=== PATIENT | female | born 1950 | race Caucasian/White ===

== ENCOUNTER 2017-05-12 15:51 | Emergency (ER) | payer MEDICARE ==
[~2017-05-12] VITALS: Ht 157.5 cm; Wt 73.6 kg
[~2017-05-12 15:51] MED LIST: /CELE20CA PO; ASPI81TA21 PO; CALCTAB28 PO; COQ1100C PO; FISH1400 PO; LOSA100T36 PO; LYRI75CA PO; PERCOCET OR; SIMV40TA2 PO; TYLE325T5 PO; VITA200016 PO; XARE10TA PO; ZETI10TA21 PO; [UNRECOGNIZED DRUG - OTHER] PO
[2017-05-12] MEDS ORDERED: MELO15TA4 PO (16:11)
--- NOTE | 2017-05-12 19:10 | REPUSA ---
Clinical statement: Pain, swelling. Findings: Venous Doppler imaging of the left upper extremity was performed. The internal jugular vein compresses normally and demonstrates normal color Doppler flow. Normal venous wave forms are seen wi thin the subclavian vein. The axillary, brachial, basilic, and cephalic veins compress normally and d emonstrate normal color Doppler flow. Normal augmentation is seen. Impression: No evidence of deep vein thrombosis in the left upper extremity.
--- NOTE | 2017-05-12 19:15 | REP ---
Chest two views HISTORY: Shortness of breath Comparison: 10/02/2013 The lungs are clear. The heart is normal in size. The pulmonary vasculature is normal in appearance. The bony structure is intact. IMPRESSION: No acute disease. Signed by Rafael Martins MD 05/12/2017 07:06 P
[2017-05-12 19:24] LABS: BASO % 0.4 % (0.0-1.0); EOS # 0.1 K/mm3 (0.0-0.50); EOS % 0.9 % (0.0-3.0); LARGE UNSTAINED CELL # 0.2 K/mm3 (0.0-0.4); LARGE UNSTAINED CELL % 2.2 % (0.0-4.0); LYMPH # 1.9 K/mm3 (1.5-4.5); LYMPH % 20.8 % (24.0-44.0); MEAN CORPUSCULAR HEMOGLOBIN 29.8 pg (27.0-33.0); MEAN CORPUSCULAR HGB CONC 34.1 g/dl (32.0-36.5); MEAN CORPUSCULAR VOLUME 87.5 fl (80.0-96.0); MONO # 0.4 K/mm3 (0.0-0.8); MONO % 4.6 % (0.0-5.0); NEUTROPHILS % 71.2 % (36.0-66.0); PLATELET COUNT, AUTOMATED 316 k/mm3 (150-450); RED CELL DISTRIBUTION WIDTH 12.2 % (11.5-14.5); WHITE BLOOD COUNT 8.4 K/mm3 (4.0-10.0)
[2017-05-12 19:52] LABS: ANION GAP 4 MEQ/L (8-16); BLOOD UREA NITROGEN 17 MG/DL (7-18); CALCIUM LEVEL 9.3 MG/DL (8.8-10.2); CARBON DIOXIDE LEVEL 30 MEQ/L (21-32); CHLORIDE LEVEL 107 MEQ/L (98-107); CREATININE FOR GFR 0.77 MG/DL (0.55-1.02); GLOMERULAR FILTRATION RATE > 60.0 (>45); GLUCOSE, FASTING 97 MG/DL (80-110); POTASSIUM SERUM 4.3 MEQ/L (3.5-5.1); SODIUM LEVEL 141 MEQ/L (136-145)
[2017-05-12 20:53] VITALS: BP 174/81
--- NOTE | 2017-05-14 08:19 | ECGEPIP ---
Stationary ECG Study [facility] - ED Test Date: 2017-05-12 Pat Name: SPENCER FONG Department: Room: - Gender: F Field Interviewer: alexandra : 1950 Requested By: ASIA Vincent Order Number: [id number] Reading MD: Alma Delia Colindres Measurements Intervals [place] Rate: 71 P: 48 OR: 162 QRS: 66 QRSD: 93 T: 41 QT: 384 QTc: 419 Interpretive Statements SINUS RHYTHM NSTTW ABNORMALITY COMPARED 04/22/13 Electronically Signed On 05-14-2017 8:19:37 EDT by Alma Delia Colindres
== END 2017-05-12 21:28 | disposition home or self-care (01) ==
LOC: M ED 15:51
DX: S46.812A Strain of other muscles, fascia and tendons at shoulder and upper arm level, left arm, initial encounter (principal); X50.9XXA Other and unspecified overexertion or strenuous movements or postures, initial encounter; Y92.89 Other specified places as the place of occurrence of the external cause; Y93.B2 Activity, push-ups, pull-ups, sit-ups; Y99.8 Other external cause status; I10 Essential (primary) hypertension; E78.5 Hyperlipidemia, unspecified; M19.90 Unspecified osteoarthritis, unspecified site; Z79.899 Other long term (current) drug therapy; Z79.82 Long term (current) use of aspirin

== ENCOUNTER → 2018-07-26 | Outpatient (REF) | payer MEDICARE ==
[2018-07-26 17:30] LABS: C REACTIVE PROTEIN QUANTITATIV 0.41 MG/DL (0.00-0.30)
[2018-07-26 18:00] LABS: ERYTHROCYTE SEDIMENTATION RATE 34 mm/hr (0-30)
== END ==
LOC: M LABDRAW1 16:55
DX: Z96.651 Presence of right artificial knee joint (principal)
CPT/HCPCS: 86140

== ENCOUNTER → 2018-08-08 | Outpatient (CLI) | payer MEDICARE | LOC: M RAD 13:30 | DX: Z96.651 Presence of right artificial knee joint (principal); M25.461 Effusion, right knee; M17.11 Unilateral primary osteoarthritis, right knee; M71.21 Synovial cyst of popliteal space [Baker], right knee | CPT/HCPCS: 73700 ==

== ENCOUNTER → 2018-08-16 | Outpatient (REF) | payer MEDICARE ==
[2018-08-16 14:04] LABS: CRYSTALS, BODY FLUID NONE SEEN (NONE SEEN); SOURCE, BODY FLUID CRYSTALS RT KNEE
[2018-08-16 14:30] LABS: BF MONONUCLEAR CELL % 28.9 % (0-0); BF POLYMORPHONUCLEAR CELL % 71.1 % (0-0); RBC BODY FLUID < 2 10^3/uL (<2); WBC BODY FLUID 339 /uL (0-10)
[2018-08-16 14:31] LABS: APPEARANCE, BODY FLUID CLOUDY (CLEAR); BF DIFF IF INDICATED? YES (NO); SOURCE, BODY FLUID RT KNEE; SYNOVIAL FLUID COLOR YELLOW (YELLOW)
[2018-08-16 14:45] LABS: SOURCE, BODY FLUID GLUCOSE RT KNEE; SOURCE, BODY FLUID URIC ACID RT KNEE; URIC ACID, BODY FLUID 3.7 MG/DL (NOT ESTABLISHED)
[2018-08-20 08:34] LABS: BODY FLUID RHEUMATOID SCREEN NEGATIVE (NEGATIVE); MUCIN CLOT TEST 3+ (4+)
== END ==
LOC: M LAB REF 13:29
DX: Z96.651 Presence of right artificial knee joint (principal)
CPT/HCPCS: 82945

== ENCOUNTER → 2018-11-10 | Outpatient (CLI) | payer MEDICARE ==
[~2018-11-10] MED LIST changes: +MELO15TA28 PO
--- NOTE | 2018-11-12 17:25 | REP ---
MRI right calf without contrast: History: Patient has a right total knee replacement. Rule out soft tissue mass. Pain in the right leg. Comparison CT study August 08, 2018. Technique: Axial, coronal, and sagittal imaging planes utilized. T1 and T2-weighted scans were obtained. There is a high T1, low T2 signal intensity oval shaped area within the distal soleus muscle in the distal calf consistent with a muscle tear at the myofascial interface distally. This measures approximately 2.2 cm in greatest medial to lateral dimension by 1.3 cm anterior to posterior. This should be correlated with areas of patient's pain. Skeletal muscle signal intensity is otherwise normal on T1 and T2-weighted scans. No cyst or other fluid collection is seen. Metallic field susceptibility artifact is seen emanating from the medial compartment of the knee in this patient status post hemiarthroplasty. Cortical and medullary bone signal intensity are otherwise normal. Impression: Myofascial soft tissue abnormality involving the distal soleus muscle in the left calf as above consistent with a hematoma associated with myofascial tear. This should be correlated with clinical signs and symptoms. Electronically Signed by Vish Parker MD 11/12/2018 05:47 P
== END ==
LOC: M RAD 11:03
PROVIDERS: ATTEND Orthopaedic Surgery Sports Medicine
DX: M79.604 Pain in right leg (principal)

== ENCOUNTER → 2019-01-09 | Outpatient (REF) | payer MEDICARE ==
[~2019-01-09] MED LIST changes: -/CELE20CA PO; +CELE1CAP4 PO; +OXYC1TAB23 OR; -PERCOCET OR
[2019-01-09 13:17] LABS: BASO # 0.1 10^3/uL (0.0-0.2); BASO % 0.5 % (0.0-1.0); EOS # 0.1 10^3/uL (0.0-0.50); EOS % 1.2 % (0.0-3.0); HEMATOCRIT 39.4 % (36.0-47.0); HEMOGLOBIN 12.6 g/dl (12.0-15.5); LYMPH # 1.9 10^3/uL (1.5-4.5); MEAN CORPUSCULAR HEMOGLOBIN 28.8 pg (27.0-33.0); MONO # 0.5 10^3/uL (0.0-0.8); MONO % 5.5 % (0.0-5.0); NEUTROPHILS # 6.6 10^3/uL (1.8-7.7); NEUTROPHILS % 71.6 % (36.0-66.0); PLATELET COUNT, AUTOMATED 459 10^3/uL (150-450); RED BLOOD COUNT 4.38 10^6/uL (4.00-5.40); WHITE BLOOD COUNT 9.2 10^3/uL (4.0-10.0)
[2019-01-09 14:15] LABS: ERYTHROCYTE SEDIMENTATION RATE 59 mm/hr (0-30)
[2019-01-11 14:26] LABS: Lyme Disease IgG Ab 18 kDa Ban Present (.); Lyme Disease IgG Ab 23 kDa Ban Present (.); Lyme Disease IgG Ab 28 kDa Ban Present (.); Lyme Disease IgG Ab 30 kDa Ban Present (.); Lyme Disease IgG Ab 39 kDa Ban Present (.); Lyme Disease IgG Ab 41 kDa Ban Present (.); Lyme Disease IgG Ab 45 kDa Ban Present (.); Lyme Disease IgG Ab 58 kDa Ban Present (.); Lyme Disease IgG Ab 66 kDa Ban Present (.); Lyme Disease IgG Ab 93 kDa Ban Present (.); Lyme Disease IgG West Blot Int Positive (.); Lyme Disease IgG/IgM Antibodie 4.37 ISR (0.00-0.90); Lyme Disease IgM Ab 23 kDa Ban Absent (.); Lyme Disease IgM Ab 39 kDa Ban Present (.); Lyme Disease IgM Ab 41 kDa Ban Present (.); Lyme Disease IgM Ab Quantitati 1.71 index (0.00-0.79); Lyme Disease IgM West Blot Int Positive (.)
== END ==
LOC: M LABDRAW1 12:12
PROVIDERS: ATTEND Orthopaedic Surgery
DX: M25.561 Pain in right knee (principal)

== ENCOUNTER → 2019-02-19 | Outpatient (REF) | payer MEDICARE ==
[2019-02-19 13:11] LABS: BASO % 0.6 % (0.0-1.0); EOS # 0.1 10^3/uL (0.0-0.50); EOS % 1.8 % (0.0-3.0); HEMATOCRIT 39.4 % (36.0-47.0); HEMOGLOBIN 12.7 g/dl (12.0-15.5); LYMPH # 2.1 10^3/uL (1.5-4.5); LYMPH % 28.5 % (24.0-44.0); MEAN CORPUSCULAR HEMOGLOBIN 28.7 pg (27.0-33.0); MEAN CORPUSCULAR HGB CONC 32.2 g/dl (32.0-36.5); MEAN CORPUSCULAR VOLUME 89.1 fl (80.0-96.0); MONO # 0.7 10^3/uL (0.0-0.8); MONO % 9.6 % (0.0-5.0); NEUTROPHILS # 4.3 10^3/uL (1.8-7.7); NEUTROPHILS % 59.4 % (36.0-66.0); PLATELET COUNT, AUTOMATED 333 10^3/uL (150-450); RED BLOOD COUNT 4.42 10^6/uL (4.00-5.40); WHITE BLOOD COUNT 7.2 10^3/uL (4.0-10.0)
[2019-02-19 13:41] LABS: ERYTHROCYTE SEDIMENTATION RATE 24 mm/hr (0-30)
[2019-02-19 13:44] LABS: C REACTIVE PROTEIN QUANTITATIV 0.42 MG/DL (0.00-0.30)
[2019-02-20 10:49] LABS: HEPATITIS C VIRUS ABY INDEX < 0.0 INDEX (<0.8)
== END ==
LOC: M SFHCPLAZ 09:54
PROVIDERS: ATTEND Internal Medicine Infectious Disease
DX: A69.23 Arthritis due to Lyme disease (principal)

== ENCOUNTER → 2019-05-10 | Outpatient (CLI) | payer MEDICARE ==
[~2019-05-10] MED LIST changes: +BYST2.5T2 PO; +PERC5TAB12 PO; +TRAM50TA2 PO; +VITA500T PO
--- NOTE | 2019-05-10 13:44 | REP ---
TRIPLE PHASE BONE SCAN KNEES: Following the administration of 22 mCi technetium 99m MDP, patient's knees are imaged in the flow phase in the anterior and posterior projections. Blood pool and 2-hour delayed images are also performed in various projections. There is increased blood flow and blood pooling throughout the right knee region. Delayed images show increased uptake in the tibial plateaus on the right, more so laterally. There is also increased uptake in the femoral condyles on the right, more so laterally. Photopenic area in the right medial femoral condyle is compatible with metallic prosthesis at that location. There is increased uptake around the margin of the prosthesis. CT of the right knee, 08/08/2018, shows hemiarthroplasty. There is increased uptake in the medial tibial plateau adjacent to the tibial portion of the prosthesis. There is mild periarticular uptake in the left medial tibial plateau and femoral condyle peripherally. This is compatible with mild arthritic uptake at that location. IMPRESSION: Increased blood flow, blood pooling, and delayed activity involving the right knee joint, as discussed in detail above. Patient has a right knee medial hemiarthroplasty in place. Differential diagnosis would include infection/inflammation of the right knee. Prosthetic loosening is not excluded. Occult fracture is not excluded. Electronically Signed by Shukri Gaytan MD 05/12/2019 10:53 P
== END ==
LOC: M RAD 10:37
PROVIDERS: ATTEND Orthopaedic Surgery
DX: Z96.651 Presence of right artificial knee joint (principal)
CPT/HCPCS: 78315; A9503

== ENCOUNTER → 2019-05-13 | Outpatient (REF) | payer MEDICARE ==
[~2019-05-13] MED LIST changes: -BYST2.5T2 PO; -PERC5TAB12 PO; -TRAM50TA2 PO; -VITA500T PO
[2019-05-13 13:53] LABS: C REACTIVE PROTEIN QUANTITATIV 0.55 MG/DL (0.00-0.30); RHEUMATOID FACTOR QUANT < 10.0 IU/ML (<15.0)
[2019-05-15 00:06] LABS: ANA (HEP2) Positive (.); CYCLIC CITRULLINATED PEPTIDE 4 units (0-19)
== END ==
LOC: M LABDRAW1 12:27
PROVIDERS: ATTEND Internal Medicine Infectious Disease
DX: A69.23 Arthritis due to Lyme disease (principal)

== ENCOUNTER → 2019-05-13 | Outpatient (REF) | payer MEDICARE ==
[2019-05-13 13:59] LABS: ALT/SGPT 24 U/L (12-78); BILIRUBIN,TOTAL 0.8 MG/DL (0.2-1.0); BLOOD UREA NITROGEN 19 MG/DL (7-18); CALCIUM LEVEL 9.6 MG/DL (8.8-10.2); CARBON DIOXIDE LEVEL 27 MEQ/L (21-32); CHLORIDE LEVEL 103 MEQ/L (98-107); CHOLESTEROL LEVEL 212 MG/DL (<200); CHOLESTEROL RISK RATIO 3.212 (<5); CPK CREATINE PHOSPHOKINASE 45 U/L (26-192); CREATININE FOR GFR 0.79 MG/DL (0.55-1.30); GLOMERULAR FILTRATION RATE > 60.0 (>45); GLUCOSE, FASTING 93 MG/DL (70-100); HDL CHOLESTEROL 66 MG/DL (>40); LDL CHOLESTEROL 111 MG/DL (<100); NON-HDL-C 146 MG/DL; POTASSIUM SERUM 4.3 MEQ/L (3.5-5.1); SODIUM LEVEL 140 MEQ/L (136-145); TOTAL PROTEIN 7.4 GM/DL (6.4-8.2); TRIGLYCERIDES LEVEL 175 MG/DL (<150)
== END ==
LOC: M LABDRAW1 12:29
PROVIDERS: ATTEND Nurse Practitioner
DX: E78.5 Hyperlipidemia, unspecified (principal); I10 Essential (primary) hypertension; R00.2 Palpitations

== ENCOUNTER → 2019-05-24 | Outpatient (REF) | payer MEDICARE ==
[2019-05-24 13:45] LABS: CRYSTALS, BODY FLUID NONE SEEN (NONE SEEN); SOURCE, BODY FLUID CRYSTALS RT KNEE
[2019-05-24 13:54] LABS: SOURCE, BODY FLUID RT KNEE; SYNOVIAL FLUID COLOR PALE YELLOW (YELLOW)
[2019-05-24 14:43] LABS: SOURCE, BODY FLUID GLUCOSE RT KNEE; SOURCE, BODY FLUID URIC ACID RT KNEE; URIC ACID, BODY FLUID 3.9 MG/DL (NOT ESTABLISHED)
[2019-05-24 15:36] LABS: BODY FLUID RHEUMATOID SCREEN NEGATIVE (NEGATIVE)
[2019-05-24 15:38] LABS: MUCIN CLOT TEST 4+ (4+)
== END ==
LOC: M LAB REF 13:09
PROVIDERS: ATTEND Orthopaedic Surgery
DX: M25.561 Pain in right knee (principal)

== ENCOUNTER → 2019-07-17 | Outpatient (CLI) | payer MEDICARE ==
--- NOTE | 2019-07-17 10:58 | REP ---
Two-view chest: 07/17/2019. Indication: Preoperative assessment. Comparison: 05/12/2017. Findings: The lungs are clear. There is no pleural effusion or pneumothorax. The cardiomediastinal silhouette is unremarkable. Impression: Clear lungs. Electronically Signed by Jethro Bush DO 07/17/2019 10:49 A
[2019-07-17 11:00] LABS: INR 0.94; PROTHROMBIN TIME 12.3 SECONDS (11.8-14.0)
[2019-07-17 11:15] LABS: HEMATOCRIT 40.7 % (36.0-47.0); HEMOGLOBIN 13.1 g/dl (12.0-15.5); MEAN CORPUSCULAR HEMOGLOBIN 29.7 pg (27.0-33.0); MEAN CORPUSCULAR HGB CONC 32.2 g/dl (32.0-36.5); MEAN CORPUSCULAR VOLUME 92.3 fl (80.0-96.0); PLATELET COUNT, AUTOMATED 347 10^3/uL (150-450); RED BLOOD COUNT 4.41 10^6/uL (4.00-5.40); WHITE BLOOD COUNT 7.3 10^3/uL (4.0-10.0)
[2019-07-17 11:24] LABS: ALT/SGPT 27 U/L (12-78); BILIRUBIN,TOTAL 1.3 MG/DL (0.2-1.0); BLOOD UREA NITROGEN 18 MG/DL (7-18); CALCIUM LEVEL 9.9 MG/DL (8.8-10.2); CARBON DIOXIDE LEVEL 29 MEQ/L (21-32); CHLORIDE LEVEL 106 MEQ/L (98-107); CREATININE FOR GFR 0.72 MG/DL (0.55-1.30); GLOMERULAR FILTRATION RATE > 60.0 (>45); GLUCOSE, FASTING 85 MG/DL (70-100); POTASSIUM SERUM 4.8 MEQ/L (3.5-5.1); SODIUM LEVEL 140 MEQ/L (136-145); TOTAL PROTEIN 7.6 GM/DL (6.4-8.2)
[2019-07-17 11:44] LABS: ERYTHROCYTE SEDIMENTATION RATE 31 mm/hr (0-30)
--- NOTE | 2019-07-17 22:35 | ECGEPIP ---
[facility] Test Date: 2019-07-17 Pat Name: SPENCER FONG Department: Room: - Gender: Female Vendor Manager: ATIF : 1950 Requested By: Mj Campbell Order Number: [id number] Reading MD: Rafael Loco Measurements Intervals [place] Rate: 66 P: 7 OK: 174 QRS: 60 QRSD: 96 T: 15 QT: 394 QTc: 415 Interpretive Statements SINUS RHYTHM Nonspecific ST abnormalities. No significant change compared with 05/12/2017 Electronically Signed on 07-17-2019 22:35:32 EDT by Rafael Loco
== END ==
LOC: M RAD 09:55
PROVIDERS: ATTEND Orthopaedic Surgery
DX: M17.11 Unilateral primary osteoarthritis, right knee (principal); Z79.01 Long term (current) use of anticoagulants

== ENCOUNTER 2019-08-07 09:35 | Inpatient (IN) | payer MEDICARE ==
--- NOTE | 2019-07-26 15:15 | HPE ---
DATE OF ADMISSION: 08/07/2019 ATTENDING PHYSICIAN: Dr. Mj Campbell and Dr. Negro North. PREVIOUS HISTORY: 1. Partial right total knee arthroscopy. 2. Osteoarthritis. 3. Hypertension. 4. Hyperlipidemia. ALLERGIES: NO KNOWN DRUG ALLERGIES. CURRENT MEDICATIONS: - tramadol 50 mg every 6 hours as needed for pain - vitamin C 500 mg one by mouth daily - nabumetone 500 mg one by mouth twice a day - Zetia 10 mg one by mouth every day - Bystolic 2.5 mg - losartan 100 mg every day PAST MEDICAL HISTORY: 1. Hypertension. 2. Hyperlipidemia. 3. Osteoarthritis. 4. Gallbladder disease. PAST SURGICAL HISTORY: 1. Partial total right knee arthroplasty 6 years ago. 2. (C) section. 3. Tonsillectomy. 4. Gallbladder removal. FAMILY HISTORY: Noncontributory. SOCIAL HISTORY: Does not smoke and is a social drinker. REVIEW OF SYSTEMS: Denies fever, chills. Denies chest pain, shortness of breath or cough. Denies difficulty breathing. Denies abdominal pain. Denies nausea or vomiting. Has persistent pain in her right knee with weightbearing activities. Denies upper respiratory infection (URI) or urinary tract infection (UTI) symptoms. VITAL SIGNS: Height 62.5 inches, weight 169.6 pounds, temperature 97.4, pulse 72, respiratory rate 16, blood pressure 130/70. PHYSICAL EXAMINATION: Today reveals a well-nourished, well-developed, alert female patient, who walks with a slight limp favoring her left side. Exam of the right knee: Skin to be intact. No erythema, edema or ecchymosis. Tenderness over the anteromedial aspect of the knee, range of motion 0-105 degrees on exam, stable to varus and valgus stress. Well perfused right lower extremity. Neck is supple without adenopathy or jugular venous distention (JVD). Lungs are clear to auscultation without rales or wheeze. Heart: Regular rate and rhythm. Abdomen: Bowel sounds are present. Electrocardiogram (EKG) noted for sinus rhythm. Chest x-ray: No acute cardiopulmonary process noted. LABORATORY STUDIES: White count 7.3, red blood count 4.41, hemoglobin 13.1, hematocrit 40.7. Sodium 140, potassium 4.8, glucose 85, BUN 18, creatinine 0.72. ESR 31. Prothrombin time 12.3, INR 0.94. PREOPERATIVE MEDICAL OPTIMIZATION: Dr. Jethro Bush, but is not present for review today. IMPRESSION: Symptomatic osteoarthritis of her right knee. PLAN: Consented for right total knee arthroplasty by Dr. Campbell and Dr. North. Reviewed pre and post-operative instructions to include but not limited to need to be NPO after midnight. length of stay, when to stop NSAIDs and ASA, importance of following primary's and instructor ballroom dancing recommendations for stopping anticoagulants and the primary's recommendations for how to take their daily medications. PAPOD
[~2019-08-07] VITALS: Ht 157.5 cm; Wt 76.1 kg
[~2019-08-07 09:35] MED LIST changes: +BYST2.5T2 PO; +TRAM50TA2 PO; +VITA500T PO
[2019-08-07] MEDS ORDERED: ceFAZolin SOD 2 GM in IV 1 EA IV ONE (10:30)
[2019-08-07] MEDS ORDERED: SCOPOLAMINE 1MG TRANSDERMAL PATCH As Ordered ONE (11:37)
[2019-08-07] MEDS ORDERED: SCOPOLAMINE 1MG TRANSDERMAL PATCH TOP ONE (12:00)
[2019-08-07] MEDS ORDERED: LR 1,000 ML IV ONE (12:00)
[2019-08-07] MEDS ORDERED: fentaNYL 100 MCG/2 ML INJECTION (J3010) As Ordered ONE (12:02)
[2019-08-07] MEDS ORDERED: MIDAZOLAM INJ 2 MG/2 ML VIAL (J2250) As Ordered ONE ×2 (12:02→12:58)
[2019-08-07] MEDS ORDERED: TRANEXAMIC ACID 100 MG/ML 10ML VIAL As Ordered ONE (12:04)
[2019-08-07] MEDS ORDERED: EPINEPHrine INJ 1 MG/ML 1ML AMP As Ordered ONE (12:05)
[2019-08-07] MEDS ORDERED: ceFAZolin 1GM INJ (J0690 PER 500MG) As Ordered ONE (12:05)
--- NOTE | 2019-08-07 12:10 | IPN ---
DATE: 08/07/2019 Patient seen and examined. She wishes to go ahead with an arthroplasty revision of her right knee. She has a unicompartmental knee in there placed by another surgeon and is having difficulties with it. She understands the nature of the procedure, the risks of bleeding, infection, damage to nerves, vessels, persistent pain, wear loosening, blood clots, medical problems, , among others.
[2019-08-07] MEDS ORDERED: fentaNYL 100 MCG/2 ML INJECTION (J3010) IV ONE (12:30)
[2019-08-07] MEDS ORDERED: MIDAZOLAM INJ 2 MG/2 ML VIAL (J2250) IV ONE (12:30)
[2019-08-07] MEDS ORDERED: PROPOFOL 200 MG/20 ML VIAL As Ordered ONE ×2 (12:58→13:46)
[2019-08-07] MEDS ORDERED: ePHEDrine SULFATE 25 MG/5 ML(5MG/ML) SYRINGE As Ordered ONE (13:04)
[2019-08-07] MEDS ORDERED: BUPIVACAINE LIPOSOME/PF 1.3% 20ML VIAL (13.3MG/ML)(EXPAREL)(C9290 PER1MG) As Ordered ONE (13:05)
[2019-08-07] MEDS ORDERED: oxyCODONE 5MG TAB PO PRN (15:00)
[2019-08-07] MEDS ORDERED: MORPHINE 4 MG/ML 1ML VIAL/SYRINGE (J2270) IV PRN ×2 (15:00)
[2019-08-07] MEDS ORDERED: FLEET ENEMA PR PRN (15:00)
[2019-08-07] MEDS ORDERED: LR 1,000 ML IV SCH ×2 (15:00)
[2019-08-07] MEDS ORDERED: ACETAMINOPHEN TAB 650MG DOSE (2X325MG) PO PRN (15:00)
[2019-08-07] MEDS ORDERED: ONDANSETRON 4MG/2ML VIAL (J2405) IV PRN ×2 (15:00)
[2019-08-07] MEDS ORDERED: fentaNYL 100 MCG/2 ML INJECTION (J3010) IV PRN (15:00)
--- NOTE | 2019-08-07 15:18 | REP ---
Two views right knee: . Indication: Postoperative assessment. Findings: The patient is status post total right knee arthroplasty with the surgical hardware well seated and intact. Expected postoperative sequelae are otherwise noted. There is no evidence of acute fracture. Impression: Expected postoperative sequelae status post total right knee arthroplasty. Electronically Signed by Jethro Bush DO 08/07/2019 03:10 P
--- NOTE | 2019-08-07 16:08 | CR.PDOC ---
General Date of Consultation: Aug 07, 2019 Consultation REASON FOR CONSULTATION/CHIEF COMPLAINT: medical management Patient is a 73-year-old female with PMH of hypertension, hyperlipidemia, osteoarthritis, gallbladder disease, and surgical history of partial right total knee arthroscopy, status post right partial to TKA POD#0 (08/07/19). Medical team consult for medical management. Reports pain controlled, denies any headaches, chest pain, shortness of breath, nausea, vomiting, abdominal pain. Patient is a good historian, familiar with her medications. Most recent labs on 07/17 include CBC grossly within normal limits, creatinine of 0.72, GFR greater than 60. ROS: 10 point review of systems are negative except per above. PMH: See above. PSH: see above, section, tonsillectomy, cholecystectomy. Family Hx: Reviewed with patient and noncontributory Social History: Denies tobacco, ETOH Medications: reviewed Allergies: NKDA PHYSICAL EXAMINATION: VITAL SIGNS: Please see below. GENERAL: No distress HEENT: Normocephalic, atraumatic, moist mucous membranes, EOMI, PERRLA NECK: Supple CARDIOVASCULAR EXAMINATION: S1, S2 RESPIRATORY EXAMINATION: CTAB ABDOMINAL EXAMINATION: Soft, nontender, nondistended, positive bowel sounds EXTREMITIES: trace R LE edema, cap refill <3sec, pulses intact SKIN: No rash NEUROLOGICAL EXAMINATION: Alert and oriented 3, no focal deficits PSYCHIATRIC EXAMINATION: Calm and cooperative, appropriate affect Patient is a 73-year-old female with PMH of hypertension, hyperlipidemia, osteoarthritis, gallbladder disease, and surgical history of partial right total knee arthroscopy, status post right partial to TKA POD#0 (08/07/19). #post right partial to TKA POD#0 (08/07/19): Refer to primary team management. Pain control per primary team. #HTN: continue home meds, resume home ASA 81mg QD, follow up with CMP 08/08 #HLD: cont home meds DVT ppx: Rivaroxiban 10mg QD Thank you for the consult. Vital Signs/I&O Vital Signs Date Time Temp Pulse Resp B/P (MAP) Pulse Ox O2 Delivery O2 Flow Rate FiO2 08/07/19 15:30 68 16 154/75 (101) 97 Room Air 08/07/19 15:15 97.4 08/07/19 12:20 3 Allergies Coded Allergies: No Known Allergies (Unverified , 08/07/19) Home Medications Scheduled Ascorbic Acid (Vitamin C) 500 Mg Tablet, 500 MG PO DAILY for 30 Days, #30 (Reported) Aspirin (Aspir-Low) 81 Mg Tab, 81 MG PO DAILY, (Reported) Ezetimibe (Zetia) 10 Mg Tab, 10 MG PO DAILY, (Reported) Losartan Potassium (Losartan Potassium) 100 Mg Tab, 100 MG PO DAILY, (Reported) Nebivolol HCl (Bystolic) 2.5 Mg Tablet, 2.5 MG PO DAILY, (Reported) Simvastatin (Simvastatin) 40 Mg Tab, 40 MG PO DAILY, (Reported) Scheduled PRN Tramadol HCl (Tramadol HCl) 50 Mg Tablet, 50 MG PO Q6HP PRN for pain for 7 Days, #30 (Reported) DILCIA AJ MD Aug 07, 2019 16:08
[2019-08-07] MEDS ORDERED: PILL CUTTER 1 EACH XX PRN (16:30)
[2019-08-07] MEDS ORDERED: traMADol 50 MG TAB PO PRN (16:30)
[2019-08-07] MEDS ORDERED: oxyCODONE 5MG TAB As Ordered ONE (16:53)
[2019-08-07] MEDS ORDERED: dexameTHASONE 10 MG/1 ML VIAL PRES.FREE (J1100) ONE (16:54)
[2019-08-07] MEDS ORDERED: EPINEPHrine INJ 1 MG/ML 1ML AMP ONE (16:54)
[2019-08-07] MEDS ORDERED: ROPIvacaine 0.5% 30 ML INJECTION (J2795 PER 1MG) ONE (16:54)
[2019-08-07 17:30] VITALS: BP 158/85
[2019-08-07 18:00] VITALS: BP 136/67
[2019-08-07 19:00] VITALS: BP 135/101
[2019-08-07] MEDS: PERCOCET 5MG/325MG TAB PO PRN (19:45)
[2019-08-07 20:45] VITALS: BP 133/76
[2019-08-07] MEDS: ceFAZolin SOD 2 GM in IV 1 EA IV SCH (21:34)
[2019-08-07 22:09] VITALS: BP 128/61
[2019-08-08 02:38] VITALS: BP 127/61
[2019-08-08] MEDS: ceFAZolin SOD 2 GM in IV 1 EA IV SCH (05:12)
[2019-08-08 06:45] VITALS: BP 153/73
[2019-08-08] MEDS ORDERED: PERC5TAB12 PO (06:50)
[2019-08-08] MEDS ORDERED: XARE10TA PO (06:50)
--- NOTE | 2019-08-08 07:25 | IPNPDOC ---
Date Seen The patient was seen on 08/08/19. Progress Note SUBJECTIVE: Patient had no overnight events, tolerated home meds well. OBJECTIVE PHYSICAL EXAMINATION: PHYSICAL EXAMINATION: VITAL SIGNS: Please see below. GENERAL: No distress HEENT: Normocephalic, atraumatic, moist mucous membranes, EOMI, PERRLA NECK: Supple CARDIOVASCULAR EXAMINATION: S1, S2 RESPIRATORY EXAMINATION: CTAB ABDOMINAL EXAMINATION: Soft, nontender, nondistended, positive bowel sounds EXTREMITIES: trace R LE edema, cap refill <3sec, pulses intact SKIN: No rash NEUROLOGICAL EXAMINATION: Alert and oriented 3, no focal deficits PSYCHIATRIC EXAMINATION: Calm and cooperative, appropriate affect ASSESSMENT AND PLAN: Patient is a 73-year-old female with PMH of hypertension, hyperlipidemia, osteoarthritis, gallbladder disease, and surgical history of partial right total knee arthroscopy, status post right partial to TKA POD#1 (08/07/19). #post right partial to TKA POD#1 (08/07/19): Refer to primary team management. Pain control per primary team. #HTN: continue home meds, resume home ASA 81mg QD #HLD: cont home meds DVT ppx: Rivaroxiban 10mg QD Dispo: per primary team VS, I&O, 24H, Fishbone Vital Signs/I&O Vital Signs Date Time Temp Pulse Resp B/P (MAP) Pulse Ox O2 Delivery O2 Flow Rate FiO2 08/08/19 02:38 99.9 70 15 127/61 (83) 95 Room Air 08/07/19 12:20 3 I&O- Last 24 Hours up to 6 AM 08/08/19 06:00 Intake Total 1950 ml Output Total 500 ml Balance 1450 ml DILCIA AJ MD Aug 08, 2019 07:25
[2019-08-08 07:46] LABS: HEMATOCRIT 32.8 % (36.0-47.0); HEMOGLOBIN 10.6 g/dl (12.0-15.5); MEAN CORPUSCULAR HEMOGLOBIN 29.4 pg (27.0-33.0); MEAN CORPUSCULAR HGB CONC 32.3 g/dl (32.0-36.5); MEAN CORPUSCULAR VOLUME 91.1 fl (80.0-96.0); PLATELET COUNT, AUTOMATED 317 10^3/uL (150-450); WHITE BLOOD COUNT 10.8 10^3/uL (4.0-10.0)
[2019-08-08 08:00] VITALS: BP 124/72
[2019-08-08] MEDS: PERCOCET 5MG/325MG TAB PO PRN (08:03)
[2019-08-08] MEDS ORDERED: MIRALAX *UNIT DOSE* 17GM PACKET PO SCH (09:00)
[2019-08-08] MEDS ORDERED: SIMVASTATIN 40 MG TAB PO SCH (09:00)
[2019-08-08] MEDS ORDERED: MOM 30ML SUSPENSION UDC PO SCH (09:00)
[2019-08-08] MEDS ORDERED: NEBIVOLOL 5 MG TAB (BYSTOLIC) PO SCH (09:00)
[2019-08-08] MEDS ORDERED: ASPIRIN 81 MG ENTERIC TAB PO SCH (09:00)
[2019-08-08 10:00] VITALS: BP 138/68
[2019-08-08 10:11] VITALS: BP 138/68
--- NOTE | 2019-08-08 16:37 | RO ---
DATE OF PROCEDURE: 08/07/2019 PREOPERATIVE DIAGNOSIS: Painful right knee with arthritis, status post unicompartmental knee replacement. POSTOPERATIVE DIAGNOSIS: Painful right knee with arthritis, status post unicompartmental knee replacement. PROCEDURE: Revision right total knee arthroplasty with removal of unicompartmental knee and placement of a total knee replacement. SURGEON: Dr. Mj Campbell CORPORATE STRATEGIST: Dr. Jeramy North ANESTHESIA: Spinal. ESTIMATED BLOOD LOSS: 50 mL. COMPLICATIONS: None. INDICATION: This is a 69-year-old who has had some persistent knee pain. She had a previous unicompartmental knee replacement done by Dr. Machuca several years ago and did well with that for awhile but started getting some lateral compartment arthritis, and she wished to go ahead with a revision knee replacement to a total knee. She was aware of the nature and risks associated with it. DESCRIPTION OF PROCEDURE: The patient was taken to the operating room, placed in supine position after spinal anesthesia was induced. The right lower extremity was prepped and draped in the usual sterile fashion. The time-out was performed. A longitudinal incision was made over the anterior aspect of the knee midline using the previous incision. Sharp dissection was carried down through subcutaneous tissue. I performed a medial parapatellar arthrotomy per routine. I had to free up some soft tissue and scarring around the patella in order to kaylene it and then flexed the knee up. It looked as though the components were in good position. There probably was a little bit of subsidence on the femoral component. The prosthetics assistant and I carefully worked our way around the femoral component freeing it up and eventually removing it. There was no significant remaining cement in the femoral side. We then used the canal initiating reamer on the femoral side and the intramedullary guide was set at 5 degrees of valgus, 9 mm cut. This was pinned in place, and it did contact the lateral condyle in the usual fashion. Of course, it was off of the medial condyle because that is where the prosthesis had been resected. This was pinned in place, the distal femoral cut was made, which actually went right through the medial side and took a little bit of bone off there. Excellent cut was noted. I then sized the femur and I actually used a 2-1/2 mm wedge behind the medial femoral condyle in order to recreate the relatively normal thickness of the condyle so that the sizing guide could be used in the appropriate rotation. The drill holes were placed in the end of the femur, and the Shalini's line was used to determine rotation. I then sized the femur to be a 4. The four cutting block was secured after the distal femoral cut had been made. I then removed all this excess bone. We then directed our attention to the tibial side, and the small osteotome was used to remove the tibial component, which came out relatively easily. There was still remaining cement in the tibial side which was removed with a curette and a rongeur. Tibial alignment guide was then placed in the appropriate amount of valgus and posterior slope. The proximal tibia cut was made taking 10 mm off the high side, which actually took a small wafer of bone off of the medial side as well. Overall the cuts looked very clean and almost like a primary knee cut. I then used the assistant associate professor to remove soft tissue and osteophytes from either side of the knee. We prepared the box cut and removed the bone from the center of the femur. The spacer blocks were then used, and a size 12 seemed to be appropriate in flexion and extension. I then prepared the tibial surface; the size 3 tray fit nicely. This was pinned in place, drilled, broached. Trial components were then inserted, and they fit very well and had excellent balance in flexion and extension with a 12 mm polyethylene. I then cut the patella removing about 7 mm of bone, sized to be a 32. The drill holes were placed, drill holes were placed in the end of the femur. I then irrigated and dried the bony surfaces, injected the Exparel in the deep tissues as the prosthetics assistant prepared the bone cement in the modern technique on the back table. I did use the antibiotic bone cement. The surfaces were dried. I cemented the tibial surface and the femoral component, removed excess bone cement, placed the polyethylene, brought the knee out into extension and cemented on the patella, held this in place with a clamp removed excess bone cement, and then did final deep irrigation, placed the Exparel in the deep tissues and closed the deep layer with #1 Vicryl suture and irrigated out the remaining Exparel prior to final closure. Running Stratafix and #1 Vicryl suture were used to close the deep layer. Subcu was closed with #2-0 Vicryl and the skin with kyrie. Sterile dressing was applied, and the knee was put through range of motion. She had excellent stability and excellent range of motion. Tourniquet had been deflated once the cement had hardened. She was taken to recovery room in stable condition. There were no known complications. The plan will be routine postop. The prosthetics assistant was instrumental in holding retractors and assisting in removal of the component and assisting in mixing the bone cement and assisting in wound closure. OCHOA
[2019-08-08] MEDS ORDERED: RIVAROXABAN 10 MG TAB (XARELTO) PO SCH (18:00)
== END 2019-08-08 13:24 | disposition home or self-care (01) | DRG 468 ==
LOC: M OR 09:35 → M MS5PR 17:05
PROVIDERS: ADMIT Orthopaedic Surgery; ATTEND Orthopaedic Surgery
PROC: 0SPC0JZ Removal of Synthetic Substitute from Right Knee Joint, Open Approach (ICD-10-PCS; 2019-08-07)
PROC: 0SRC0J9 Replacement of Right Knee Joint with Synthetic Substitute, Cemented, Open Approach (ICD-10-PCS; principal; 2019-08-07 13:05)
DX: M17.11 Unilateral primary osteoarthritis, right knee (principal); I10 Essential (primary) hypertension; E78.5 Hyperlipidemia, unspecified; Z90.49 Acquired absence of other specified parts of digestive tract; R26.89 Other abnormalities of gait and mobility; Z79.82 Long term (current) use of aspirin; Z79.899 Other long term (current) drug therapy

== ENCOUNTER → 2021-12-01 | Outpatient (CLI) | payer MEDICARE ==
[~2021-12-01] MED LIST changes: +PERC5TAB12 PO; +VITA-243 PO; -VITA500T PO
[2021-12-01 11:38] LABS: BLOOD UREA NITROGEN 24 MG/DL (7-18); CREATININE FOR GFR 0.68 MG/DL (0.55-1.30); GLOMERULAR FILTRATION RATE > 60.0 (>39)
== END ==
LOC: M LAB 09:58
PROVIDERS: ATTEND Otolaryngology
DX: H90.3 Sensorineural hearing loss, bilateral (principal)

== ENCOUNTER → 2021-12-03 | Outpatient (CLI) | payer MEDICARE ==
[~2021-12-03] MED LIST changes: +PROHANCE 279.3MG/ML 15ML VIAL As Ordered ONE
== END ==
LOC: M RAD 08:20
PROVIDERS: ATTEND Otolaryngology
DX: H90.3 Sensorineural hearing loss, bilateral (principal)
CPT/HCPCS: 70553; A9576

== ENCOUNTER → 2023-06-27 | Outpatient (CLI) | payer MEDICARE ==
[~2023-06-27] MED LIST changes: -PROHANCE 279.3MG/ML 15ML VIAL As Ordered ONE
== END ==
LOC: M PAIN 13:00
PROVIDERS: ATTEND Nurse Practitioner Family
DX: M79.12 Myalgia of auxiliary muscles, head and neck (principal); M54.2 Cervicalgia; G89.29 Other chronic pain; E78.5 Hyperlipidemia, unspecified; I10 Essential (primary) hypertension; J30.9 Allergic rhinitis, unspecified; L71.9 Rosacea, unspecified; M19.90 Unspecified osteoarthritis, unspecified site; Z79.899 Other long term (current) drug therapy

== ENCOUNTER → 2023-08-22 | Outpatient (CLI) | payer MEDICARE ==
[~2023-08-22] MED LIST changes: +NORCO, ANEXSIA 5/325MG TABLET (HYDROcodone/ACETAMINOPHEN) As Ordered ONE; +TRIAMCINOLONE ACETONIDE SUSP 40MG/ML 1ML VIAL As Ordered ONE; +diazePAM 5MG TABLET As Ordered ONE
== END ==
LOC: M PAIN 14:15
PROVIDERS: ATTEND Anesthesiology
DX: M79.12 Myalgia of auxiliary muscles, head and neck (principal); M79.18 Myalgia, other site; E78.5 Hyperlipidemia, unspecified; I10 Essential (primary) hypertension; J30.9 Allergic rhinitis, unspecified; M19.90 Unspecified osteoarthritis, unspecified site; L71.9 Rosacea, unspecified; Z79.899 Other long term (current) drug therapy
CPT/HCPCS: 20553; J0665; J3301

== ENCOUNTER → 2023-09-22 | Outpatient (CLI) | payer MEDICARE ==
[~2023-09-22] MED LIST changes: -NORCO, ANEXSIA 5/325MG TABLET (HYDROcodone/ACETAMINOPHEN) As Ordered ONE; -TRIAMCINOLONE ACETONIDE SUSP 40MG/ML 1ML VIAL As Ordered ONE; -diazePAM 5MG TABLET As Ordered ONE
== END ==
LOC: M PAIN 10:15
PROVIDERS: ATTEND Nurse Practitioner Family
DX: M47.812 Spondylosis without myelopathy or radiculopathy, cervical region (principal); M79.12 Myalgia of auxiliary muscles, head and neck; G89.29 Other chronic pain; Z79.899 Other long term (current) drug therapy

== ENCOUNTER → 2023-11-08 | Outpatient (CLI) | payer MEDICARE | LOC: M PAIN 11:15 | PROVIDERS: ATTEND Anesthesiology | DX: M47.812 Spondylosis without myelopathy or radiculopathy, cervical region (principal); M46.92 Unspecified inflammatory spondylopathy, cervical region; E78.5 Hyperlipidemia, unspecified; I10 Essential (primary) hypertension; Z79.899 Other long term (current) drug therapy ==

== ENCOUNTER → 2024-03-05 | Outpatient (CLI) | payer MEDICARE ==
[~2024-03-05] MED LIST changes: +ISOVUE-M 300 61% 15ML VIAL As Ordered ONE; +LIDOCAINE 1% SDV 30ML VIAL As Ordered ONE
== END ==
LOC: M PAIN 12:00
PROVIDERS: ATTEND Anesthesiology
DX: M47.812 Spondylosis without myelopathy or radiculopathy, cervical region (principal); E78.5 Hyperlipidemia, unspecified; I10 Essential (primary) hypertension; J30.9 Allergic rhinitis, unspecified; G89.29 Other chronic pain; M54.2 Cervicalgia; Z79.899 Other long term (current) drug therapy
CPT/HCPCS: 64490; 64491; J0665; Q9967

== ENCOUNTER → 2024-03-19 | Outpatient (CLI) | payer MEDICARE ==
[~2024-03-19] MED LIST changes: -ISOVUE-M 300 61% 15ML VIAL As Ordered ONE; -LIDOCAINE 1% SDV 30ML VIAL As Ordered ONE
== END ==
LOC: M PAIN 09:45
PROVIDERS: ATTEND Nurse Practitioner Family
DX: M47.812 Spondylosis without myelopathy or radiculopathy, cervical region (principal); I10 Essential (primary) hypertension; E78.5 Hyperlipidemia, unspecified; Z79.02 Long term (current) use of antithrombotics/antiplatelets; Z79.1 Long term (current) use of non-steroidal anti-inflammatories (NSAID); Z79.899 Other long term (current) drug therapy

== ENCOUNTER → 2024-04-19 | Outpatient (CLI) | payer MEDICARE | LOC: M PAIN 09:15 | PROVIDERS: ATTEND Nurse Practitioner Family | DX: M47.812 Spondylosis without myelopathy or radiculopathy, cervical region (principal); G89.29 Other chronic pain; E78.5 Hyperlipidemia, unspecified; I10 Essential (primary) hypertension; L71.9 Rosacea, unspecified; M19.90 Unspecified osteoarthritis, unspecified site; Z79.899 Other long term (current) drug therapy ==

== ENCOUNTER → 2024-05-07 | Outpatient (CLI) | payer MEDICARE | LOC: M PAIN 15:00 | PROVIDERS: ATTEND Nurse Practitioner Family | DX: M47.812 Spondylosis without myelopathy or radiculopathy, cervical region (principal); G89.29 Other chronic pain; M54.2 Cervicalgia; E78.5 Hyperlipidemia, unspecified; I10 Essential (primary) hypertension; J30.9 Allergic rhinitis, unspecified; L71.9 Rosacea, unspecified; M19.90 Unspecified osteoarthritis, unspecified site; Z79.899 Other long term (current) drug therapy ==

== ENCOUNTER → 2024-07-18 | Outpatient (CLI) | payer MEDICARE ==
[~2024-07-18] MED LIST changes: +ISOVUE-M 300 61% 15ML VIAL As Ordered ONE; +LIDOCAINE 1% SDV 30ML VIAL As Ordered ONE; +TRIAMCINOLONE ACETONIDE SUSP 40MG/ML 1ML VIAL As Ordered ONE
== END ==
LOC: M PAIN 08:15
PROVIDERS: ATTEND Anesthesiology
DX: M47.812 Spondylosis without myelopathy or radiculopathy, cervical region (principal); G89.29 Other chronic pain; E78.5 Hyperlipidemia, unspecified; I10 Essential (primary) hypertension; Z79.899 Other long term (current) drug therapy
CPT/HCPCS: 64490; 64491; J0665; J3301; Q9967

== ENCOUNTER → 2024-08-19 | Outpatient (CLI) | payer MEDICARE ==
[~2024-08-19] MED LIST changes: -ISOVUE-M 300 61% 15ML VIAL As Ordered ONE; -LIDOCAINE 1% SDV 30ML VIAL As Ordered ONE; -TRIAMCINOLONE ACETONIDE SUSP 40MG/ML 1ML VIAL As Ordered ONE
== END ==
LOC: M PAIN 14:45
PROVIDERS: ATTEND Nurse Practitioner Family
DX: M47.812 Spondylosis without myelopathy or radiculopathy, cervical region (principal); G89.29 Other chronic pain; E78.5 Hyperlipidemia, unspecified; I10 Essential (primary) hypertension; Z79.899 Other long term (current) drug therapy